=== PATIENT | male | born 1960 | race Caucasian/White ===

== ENCOUNTER → 2017-04-20 | Outpatient (CLI) | payer SELFPAY ==
--- NOTE | 2017-04-20 17:01 | KCIC ---
EXAM: CT CORONARY CALCIUM SCORING. HISTORY: Coronary risk factors. Calcium scoring is requested. Hypercholesterolemia, family history of coronary disease. COMPARISON: None. FINDINGS: Limited noncontrast CT of the chest was performed for coronary calcium scoring. Refer to the worksheets for full detail. Agatston calcium coronary scoring is as follows: LMA: 0. LAD: 0. LCX: 0. RCA: 0. PDA: 0. Total: 0. This places the patient at the 0th percentile in age- and sex-matched subjects. The included portions of the chest reveal the following. Bone windows reveal no suspicious lesions. Images of the upper abdomen reveal no acute abnormality. There are no pathologically enlarged mediastinal lymph nodes. There is no pleural or pericardial effusion. The heart is not enlarged. The lungs are clear bilaterally. IMPRESSION: 1. Agatston calcium score 0. *One or more of the following individualized dose reduction techniques were utilized for this examination: 1. Automated exposure control. 2. Adjustment of the mA and/or kV according to patient size. 3. Use of iterative reconstruction technique. Electronically signed by: Marlene Richard MD (04/20/2017 4:57 PM) [facility]
== END | disposition home or self-care (01) ==
LOC: KCIC CT 15:12
PROVIDERS: ATTEND Family Medicine
DX: Z13.6 Encounter for screening for cardiovascular disorders (principal)
CPT/HCPCS: 75571